=== PATIENT | male | born 1990 | race Caucasian/White ===

== ENCOUNTER → 2016-10-23 | Outpatient (CLI) | payer BC ==
--- NOTE | 2016-10-23 16:06 | DIAGNOSTIC IMAGING REPORT ---
CHEST 2 VIEWS ROUTINE CLINICAL HISTORY: Cough. COMPARISON STUDY: No previous studies for comparison. FINDINGS: Lung volumes are normal. Lungs are clear. There is no pneumothorax or pleural effusion. Cardiac size is normal. Mediastinal contours are normal. There is no evidence of pulmonary edema. IMPRESSION: No acute cardiopulmonary findings. Electronically signed by: Julian Laurent M.D. 10/23/2016 4:04 PM Dictated Date/Time: 10/23/2016 3:58 PM
== END | disposition home or self-care (01) ==
LOC: C.RADBC 11:16
PROVIDERS: ATTEND Physician Assistant
DX: R04.2 Hemoptysis (principal)